=== PATIENT | female | born 2000 | race Two or more races ===

== ENCOUNTER 2022-11-08 14:00 | Inpatient (IN) | payer OTHER ==
[~2022-11-08] VITALS: Ht 162.6 cm; Wt 3.2 kg
[2022-11-17] MEDS ORDERED: PRENATAL TABLE1 EAC1 PO (07:06)
[2022-11-19] MEDS ORDERED: IBUPROFEN800 MG PO (08:57)
== END 2022-11-19 10:25 | disposition home or self-care (01) | DRG 786 ==
LOC: LDR 11-17 05:09 → O/R 11-17 05:09 → LDR 11-17 10:37 → O/R 11-17 15:18 → OB/GYN 11-17 18:05
PROVIDERS: ADMIT Specialist; ATTEND Specialist
PROC: 3E0P7VZ Introduction of Hormone into Female Reproductive, Via Natural or Artificial Opening (ICD-10-PCS; 2022-11-17)
PROC: 3E033VJ Introduction of Other Hormone into Peripheral Vein, Percutaneous Approach (ICD-10-PCS; 2022-11-17)
PROC: 4A1HXCZ Monitoring of Products of Conception, Cardiac Rate, External Approach (ICD-10-PCS; 2022-11-17)
PROC: 8E0ZXY6 Isolation (ICD-10-PCS; 2022-11-17)
PROC: 10D00Z1 Extraction of Products of Conception, Low, Open Approach (ICD-10-PCS; principal; 2022-11-17 16:00)
DX: O61.0 Failed medical induction of labor (principal); U07.1 COVID-19; O98.52 Other viral diseases complicating childbirth; O62.0 Primary inadequate contractions; O99.824 Streptococcus B carrier state complicating childbirth; O33.8 Maternal care for disproportion of other origin; Z3A.39 39 weeks gestation of pregnancy; Z37.0 Single live birth

== ENCOUNTER 2025-01-23 22:34 | Emergency (ER) | payer OTHER ==
[~2025-01-23] VITALS: Ht 162.6 cm; Wt 68.0 kg
[~2025-01-23 22:34] MED LIST: IBUPROFEN800 MG PO; PRENATAL TABLE1 EAC1 PO
== END 2025-01-24 | disposition left against medical advice (07) ==
LOC: ER 22:35
DX: Z53.21 Procedure and treatment not carried out due to patient leaving prior to being seen by health care provider (principal)

== ENCOUNTER 2025-01-24 04:18 | Outpatient (CLI) | payer OTHER ==
[2025-01-24 03:34] VITALS: BP 108/61
[2025-01-24] MEDS ORDERED: CEFAZOLIN SODIUM 1,000 MG VIAL IV ONE (04:45)
[2025-01-24] MEDS ORDERED: RINGERS SOLUTION,LACTATED 1,000 ML IV SCH (04:45)
[2025-01-24] MEDS ORDERED: CEFAZOLIN SODIUM 1,000 MG VIAL ONE (04:58)
[2025-01-24 06:15] LABS: PH,URINE 6.5 (5.0-8.0); URINE APPEARANCE Clear; URINE BILIRRUBIN Negative (NEGATIVE); URINE BLOOD Small; URINE COLOR Yellow; URINE GLUCOSE Negative (NEGATIVE); URINE KETONE Negative (NEGATIVE); URINE LEUKOCYTE Large; URINE NITRATE Negative; URINE PROTEIN Negative (NEGATIVE); URINE UROBILINOGEN 0.2 E.U./dl
[2025-01-24 06:18] LABS: URINE BACTERIA 161.4 uL (0.0-1933); URINE EPITHELIAL CELLS 17.4 uL (0.0-38.8); URINE RBC 5.4 uL (0.0-20.8); URINE WBC 438.2 uL (0.0-23.2)
[2025-01-24 06:24] LABS: URINE CAST 1.17 uL (0.0-1.40)
[2025-01-24 07:18] VITALS: BP 100/62
[2025-01-24 08:07] LABS: HEMATOCRIT 33.1 % (36.0-45.00); HEMOGLOBIN 10.8 g/dL (12.0-15.00); MEAN CELL VOLUME 84.4 fL (80.00-100.00); MEAN CORPUSCULAR HEMOGLOBIN 27.6 pg (27.00-32.0); MEAN CORPUSCULAR HGB CONC 32.6 g/dl (32.0-36.0); PLATELET COUNT 236 K/uL (150-450); RED BLOOD COUNT 3.92 M/uL (4.00-6.00); RED CELL DISTRIBUTION WIDTH 15.3 % (11.5-14.5)
[2025-01-24 11:03] VITALS: BP 100/62
[2025-01-24] MEDS ORDERED: CEFAZOLIN SODIUM 1,000 MG VIAL IV SCH (12:00)
== END 2025-01-24 11:03 | disposition home or self-care (01) ==
LOC: OBS/DEL 04:18
PROVIDERS: Obstetrics & Gynecology; ATTEND Specialist
DX: O23.42 Unspecified infection of urinary tract in pregnancy, second trimester (principal); N39.0 Urinary tract infection, site not specified; Z3A.20 20 weeks gestation of pregnancy

== ENCOUNTER 2025-05-26 09:45 | Inpatient (IN) | payer OTHER ==
[~2025-05-26] VITALS: Ht 162.6 cm; Wt 81.6 kg
[2025-05-26 11:30] LABS: URINE APPEARANCE Clear; URINE BILIRRUBIN Negative (NEGATIVE); URINE BLOOD Negative; URINE COLOR Yellow; URINE GLUCOSE Negative (NEGATIVE); URINE KETONE Negative (NEGATIVE); URINE LEUKOCYTE Negative; URINE NITRATE Negative; URINE PROTEIN Negative (NEGATIVE); URINE UROBILINOGEN 0.2 E.U./dl
[2025-05-26 11:34] LABS: URINE BACTERIA 1427.8 uL (0.0-1933); URINE EPITHELIAL CELLS 53.5 uL (0.0-38.8); URINE WBC 22.7 uL (0.0-23.2)
[2025-05-26 11:41] LABS: BASO % 0.1 % (0.1-1.2); EOS # 0.32 (0.04-0.54); EOS % 3.9 % (0.7-7.0); LYMPH # 1.61 (1.18-3.74); LYMPH % 19.5 % (19.3-53.1); MEAN PLATELET VOLUME 12.70 fl (9.4-12.4); MONO # 0.74 (0.24-0.82); MONO % 9.0 % (4.7-12.5); NEUT # 5.51 (1.56-6.13); NEUT % 66.7 % (34.0-71.1); RED CELL DISTRIBUTION WIDTH 13.4 % (11.6-14.4)
[2025-05-26 11:53] LABS: INR 0.98
[2025-05-26 12:11] LABS: ALT/SGPT 11.0 U/L (12-78); AST/SGOT 18.0 U/L (15-37); BILIRUBIN TOTAL 0.2 mg/dL (0.3-1.2); BUN CREA RATIO 15.0 (7.0-25.0); CREATININE SERUM 0.48 mg/dL (0.55-1.02); GFR 160.27; GLOBULINA 3.9 G/DL (2.4-3.5); GLUCOSE FASTING 72.0 mg/dL (65-100); OSMOLALITY SERUM 276.0 MOSM/KG (275-295)
[2025-05-26 12:16] LABS: URINE CAST 0.00 uL (0.0-1.40); URINE CRYSTALS FEW /HPF; URINE RBC 0.1 uL (0.0-20.8)
[2025-06-01 06:52] VITALS: BP 118/78
[2025-06-01] MEDS ORDERED: OXYTOCIN 10 UNITS/ML VIAL ONE (08:20)
[2025-06-01] MEDS ORDERED: CEFAZOLIN SODIUM 1,000 MG VIAL ONE (08:20)
[2025-06-01] MEDS ORDERED: ERYTHROMYCIN BASE OPHT 1GM EACH TUBE OP ONE (08:20)
[2025-06-01] MEDS ORDERED: MORPHINE SULFATE 4 MG/ML CARTRIDGE IV PRN (14:30)
[2025-06-01] MEDS ORDERED: RINGERS SOLUTION,LACTATED 1,000 ML IV SCH (14:30)
[2025-06-01] MEDS ORDERED: MORPHINE SULFATE 4 MG/ML VIAL IV ONE (16:10)
[2025-06-01 18:35] VITALS: BP 133/83
[2025-06-01] MEDS ORDERED: CEFAZOLIN SODIUM 1,000 MG VIAL IV SCH (20:00)
[2025-06-02 00:06] VITALS: BP 121/68
[2025-06-02 02:08] LABS: BASO % 0.1 % (0.1-1.2); EOS # 0.04 (0.04-0.54); EOS % 0.4 % (0.7-7.0); LYMPH # 1.41 (1.18-3.74); LYMPH % 15.0 % (19.3-53.1); MEAN PLATELET VOLUME 12.90 fl (9.4-12.4); MONO # 0.58 (0.24-0.82); MONO % 6.2 % (4.7-12.5); NEUT # 7.35 (1.56-6.13); NEUT % 78.0 % (34.0-71.1); RED CELL DISTRIBUTION WIDTH 13.3 % (11.6-14.4)
[2025-06-02] MEDS ORDERED: ACETAMINOPHEN 500 MG GEL..CAP PO PRN (07:45)
[2025-06-02 08:18] VITALS: BP 131/72
[2025-06-02 16:00] VITALS: BP 115/73
[2025-06-03] VITALS: BP 115/66
[2025-06-03 09:14] VITALS: BP 120/60
[2025-06-03 17:24] VITALS: BP 130/77
[2025-06-04] VITALS: BP 111/65
[2025-06-04] MEDS ORDERED: IBUPROFEN800 MG PO (07:56)
[2025-06-04 10:05] VITALS: BP 127/82
== END 2025-06-04 15:23 | disposition home or self-care (01) | DRG 788 ==
LOC: LDR 06-01 07:00 → O/R 06-01 09:15 → LDR 06-01 09:45 → OB/GYN 06-01 15:29
PROVIDERS: ADMIT Specialist; ATTEND Specialist
PROC: 4A1HXCZ Monitoring of Products of Conception, Cardiac Rate, External Approach (ICD-10-PCS; 2025-06-01)
PROC: 10D00Z1 Extraction of Products of Conception, Low, Open Approach (ICD-10-PCS; principal; 2025-06-01 07:00)
DX: O34.211 Maternal care for low transverse scar from previous cesarean delivery (principal); Z3A.39 39 weeks gestation of pregnancy; Z37.0 Single live birth